=== PATIENT | female | born 1985 | race Two or more races ===

== ENCOUNTER → 2019-08-30 | Emergency (ER) | payer MEDICAID ==
[~2019-08-30] VITALS: Ht 162.6 cm; Wt 99.8 kg
[~2019-08-30] MED LIST: CARI-277; HYDR-4833; ONDANSETRON ODT 4 MG TAB PO ONE
[2019-08-30 15:50] VITALS: BP 143/78
== END | disposition home or self-care (01) ==
LOC: ER 14:26
DX: S16.1XXA Strain of muscle, fascia and tendon at neck level, initial encounter (principal); S00.12XA Contusion of left eyelid and periocular area, initial encounter; S00.11XA Contusion of right eyelid and periocular area, initial encounter; I10 Essential (primary) hypertension; Z88.0 Allergy status to penicillin; Z79.899 Other long term (current) drug therapy; Y04.2XXA Assault by strike against or bumped into by another person, initial encounter; Y93.89 Activity, other specified; Y92.89 Other specified places as the place of occurrence of the external cause; Y99.8 Other external cause status
CPT/HCPCS: 70450; 70486; 72125; 99285; Q0162

== ENCOUNTER 2020-01-02 18:13 | Emergency (ER) | payer MEDICAID ==
[~2020-01-02 18:13] MED LIST changes: -ONDANSETRON ODT 4 MG TAB PO ONE
== END 2020-01-02 18:23 | disposition left against medical advice (07) ==
LOC: EDBD 18:13 → ER 18:13
DX: R51 Headache (principal); Z53.21 Procedure and treatment not carried out due to patient leaving prior to being seen by health care provider

== ENCOUNTER 2020-07-25 22:39 | Inpatient (IN) | payer MEDICAID ==
[~2020-07-25] VITALS: Ht 160 cm; Wt 86.5 kg
[2020-07-26] MEDS ORDERED: IOHEXOL 300 MG/ML 100ML BOTTLE IJ ONE (00:36)
[2020-07-26 00:56] LABS: Basophils # (auto) 0 10 ^3/uL (0-0.2); Basophils % (auto) 0.2 % (0.0-2.0); Eosinophils # (auto) 0 10 ^3/uL (0-0.8); Eosinophils % (auto) 0.2 % (0.0-7.0); Hemoglobin 13.5 g/dL (12.2-16.2); Lymphocytes % (auto) 10.5 % (10.0-50.0); Mean Corpuscular Hemoglobin 28.3 pg (28.0-32.0); Mean Corpuscular Volume 85.7 fL (80.0-100.0); Monocytes # (auto) 0.8 10 ^3/uL (0-1.3); Monocytes % (auto) 4.2 % (0.0-12.0); Neutrophils # (auto) 16.1 10 ^3/uL (1.6-8.6); Neutrophils % (auto) 84.9 % (37.0-80.0); Platelet Count (auto) 255 10^3/uL (140-450); Red Blood Cells 4.78 10^6/uL (4.0-5.20); White Blood Cell 18.9 10^3/uL (4.4-10.8)
[2020-07-26 01:01] LABS: INR 1.02 (0.9-1.15)
[2020-07-26 01:03] LABS: Albumin 3.5 g/dL (3.4-5.0); BUN/Creatinine Ratio 7.1; Calcium 8.3 mg/dL (8.5-10.1); Magnesium 2.2 mg/dL (1.6-2.6)
[2020-07-26 01:06] LABS: Bilirubin, Total 0.3 mg/dL (0.2-1.0); Lactic Acid w/Reflex 3.3 mmol/L (0.4-2.0); Total Protein 7.9 g/dL (6.4-8.2)
[2020-07-26 01:07] LABS: Potassium 2.9 mmol/L (3.5-5.1)
[2020-07-26] MEDS ORDERED: VANCOMYCIN 1GM/250ML 250 ML IV ONE (01:30)
[2020-07-26] MEDS ORDERED: PIPERACILLIN-TAZOB 3.375GM 100 ML IV ONE (01:30)
[2020-07-26] MEDS ORDERED: POTASSIUM CHL 20MEQ/100ML 100 ML IV ONE (01:30)
[2020-07-26] MEDS ORDERED: SODIUM CHLORIDE 0.9% 1,000 ML IV ONE (01:30)
[2020-07-26] MEDS ORDERED: ACETAMINOPHEN 500 MG TAB PO ONE (01:30)
[2020-07-26] MEDS ORDERED: LACTATED RINGER'S 1,000 ML IV ONE (02:00)
[2020-07-26] MEDS ORDERED: VANCOMYCIN PER PHARMACY 0 MG IV SCH (03:15)
[2020-07-26] MEDS ORDERED: NITROGLYCERIN 0.4 MG SL TAB SL PRN (03:15)
[2020-07-26] MEDS ORDERED: MORPHINE SULF INJ 2 MG/ML SYRINGE 1ML IV PRN (03:15)
[2020-07-26] MEDS ORDERED: TEMAZEPAM 15 MG CAP PO PRN (03:15)
[2020-07-26] MEDS ORDERED: SODIUM CHLORIDE 0.9% 1,000 ML IV SCH (03:15)
[2020-07-26] MEDS ORDERED: ONDANSETRON HCL 4 MG/2 ML VIAL IV PRN (03:15)
[2020-07-26] MEDS ORDERED: ACETAMINOPHEN 325 MG TAB PO PRN (03:15)
[2020-07-26 04:15] LABS: Urine Bacteria FEW /hpf (None Seen); Urine Blood Negative /uL (Negative); Urine WBC 1 /hpf (0 - 5)
[2020-07-26 04:32] LABS: Amphetamine Screen, Urine POSITIVE (NEGATIVE); Barbiturate Scree,Urine NEGATIVE (NEGATIVE); Benzodiazephine Screen, Urine NEGATIVE (NEGATIVE); Cannabinoid Screen, Urine NEGATIVE (NEGATIVE); Cocaine Screen, Urine NEGATIVE (NEGATIVE); Opiate Scree,Urine NEGATIVE (NEGATIVE); Phencyclidine Screen, Urine NEGATIVE (NEGATIVE)
[2020-07-26 04:35] LABS: Urine Specific Gravity > 1.050 (1.001-1.035)
[2020-07-26 05:00] VITALS: BP 146/72
[2020-07-26] MEDS: HYDROcodone-ACET 5/325MG TAB PO PRN ×4 (05:59→22:06)
[2020-07-26 09:00] VITALS: BP 135/78
[2020-07-26] MEDS ORDERED: levoFLOXacin 500MG 100 ML IV SCH (10:00)
[2020-07-26] MEDS: FAMOTIDINE 20 MG TAB PO SCH ×2 (10:29→22:06)
[2020-07-26 12:41] VITALS: BP 147/79
[2020-07-26] MEDS ORDERED: MORPHINE SULF INJ 2 MG/ML SYRINGE 1ML IV ONE (12:45)
[2020-07-26] MEDS ORDERED: POTASSIUM CHL 20 Meq TABLET PO ONE (13:30)
[2020-07-26] MEDS ORDERED: POTASSIUM CHLORIDE 20 MEQ, LIDOCAINE 1% (LOCAL ANESTH.) 2 ML in SODIUM CHL 0.9% 100 ML IV ONE (13:30)
[2020-07-26] MEDS: VANCOMYCIN 1GM/250ML 250 ML IV SCH ×2 (13:57→22:06)
[2020-07-26 14:19] LABS: Basophils # (auto) 0 10 ^3/uL (0-0.2); Basophils % (auto) 0.3 % (0.0-2.0); Eosinophils # (auto) 0 10 ^3/uL (0-0.8); Eosinophils % (auto) 0.2 % (0.0-7.0); Hematocrit 34.8 % (36.0-46.0); Hemoglobin 11.7 g/dL (12.2-16.2); Lymphocytes # (auto) 1.1 10 ^3/uL (0.4-5.4); Lymphocytes % (auto) 9.2 % (10.0-50.0); Mean Corpuscular Hemoglobin 28.9 pg (28.0-32.0); Mean Corpuscular Hgb Conc. 33.6 g/dL (32.0-36.0); Mean Corpuscular Volume 85.9 fL (80.0-100.0); Monocytes # (auto) 0.8 10 ^3/uL (0-1.3); Monocytes % (auto) 6.5 % (0.0-12.0); Neutrophils # (auto) 10.3 10 ^3/uL (1.6-8.6); Neutrophils % (auto) 83.8 % (37.0-80.0); Platelet Count (auto) 183 10^3/uL (140-450); Red Blood Cells 4.05 10^6/uL (4.0-5.20); Red Cell Distribution Width 16.1 % (11.8-14.3); White Blood Cell 12.3 10^3/uL (4.4-10.8)
[2020-07-26] MEDS ORDERED: FOLI1TAB6 PO (14:49)
[2020-07-26] MEDS ORDERED: THIA100T10 PO (14:49)
[2020-07-26] MEDS ORDERED: MUPI2OIN2 TOP (14:49)
[2020-07-26 14:50] LABS: Calcium 8.2 mg/dL (8.5-10.1); Magnesium 2.1 mg/dL (1.6-2.6); Potassium 3.8 mmol/L (3.5-5.1)
[2020-07-26] MEDS ORDERED: GABA300C10 PO (14:52)
[2020-07-26 14:53] LABS: BUN/Creatinine Ratio 13.1
[2020-07-26] MEDS: GABAPENTIN 300 MG CAP PO SCH ×2 (16:08→22:06)
[2020-07-26 17:00] VITALS: BP 155/99
[2020-07-26] MEDS: POTASSIUM CHLORIDE 20 MEQ in SODIUM CHLORIDE 0.9% 1,000 ML IV SCH (18:32)
[2020-07-26] MEDS: PIPERACILLIN-TAZOB 3.375GM 100 ML IV SCH (18:32)
[2020-07-26 22:00] VITALS: BP 160/89
[2020-07-26] MEDS: MUPIROCIN 2% OINT 15gm or 22gm TOP SCH (22:07)
[2020-07-27] MEDS: PIPERACILLIN-TAZOB 3.375GM 100 ML IV SCH ×3 (00:03→11:00)
[2020-07-27] MEDS: POTASSIUM CHLORIDE 20 MEQ in SODIUM CHLORIDE 0.9% 1,000 ML IV SCH ×2 (00:51→10:22)
[2020-07-27] MEDS: HYDROcodone-ACET 5/325MG TAB PO PRN ×4 (02:22→22:22)
[2020-07-27 05:00] VITALS: BP 145/85
[2020-07-27 06:00] LABS: Basophils # (auto) 0 10 ^3/uL (0-0.2); Basophils % (auto) 0.3 % (0.0-2.0); Eosinophils # (auto) 0.2 10 ^3/uL (0-0.8); Eosinophils % (auto) 1.7 % (0.0-7.0); Hematocrit 33.6 % (36.0-46.0); Hemoglobin 11.5 g/dL (12.2-16.2); Lymphocytes # (auto) 2.8 10 ^3/uL (0.4-5.4); Lymphocytes % (auto) 30.1 % (10.0-50.0); Mean Corpuscular Hemoglobin 29.1 pg (28.0-32.0); Mean Corpuscular Hgb Conc. 34.2 g/dL (32.0-36.0); Monocytes # (auto) 0.7 10 ^3/uL (0-1.3); Monocytes % (auto) 7.9 % (0.0-12.0); Neutrophils # (auto) 5.5 10 ^3/uL (1.6-8.6); Platelet Count (auto) 206 10^3/uL (140-450); Red Blood Cells 3.96 10^6/uL (4.0-5.20); White Blood Cell 9.2 10^3/uL (4.4-10.8)
[2020-07-27] MEDS: GABAPENTIN 300 MG CAP PO SCH ×3 (06:17→22:21)
[2020-07-27] MEDS: VANCOMYCIN 1GM/250ML 250 ML IV SCH (06:26)
[2020-07-27 06:34] LABS: Albumin 2.6 g/dL (3.4-5.0); BUN/Creatinine Ratio 12.5; Bilirubin, Total 0.3 mg/dL (0.2-1.0); Calcium 8.5 mg/dL (8.5-10.1); Total Protein 6.3 g/dL (6.4-8.2)
[2020-07-27] MEDS: FOLIC ACID 1 MG TAB PO SCH (08:39)
[2020-07-27] MEDS: FAMOTIDINE 20 MG TAB PO SCH ×2 (08:39→22:21)
[2020-07-27] MEDS: THIAMINE HCL 100 MG TAB PO SCH (08:40)
[2020-07-27 08:49] VITALS: BP 162/85
[2020-07-27] MEDS: MUPIROCIN 2% OINT 15gm or 22gm TOP SCH ×2 (10:21→22:22)
[2020-07-27] MEDS ORDERED: FOLIC ACID 1 MG, MULTIPLE VITAMIN 10 ML, MAGNESIUM SULF SDV 50% 8 MEQ, THIAMINE INJ 100... INJ SCH ×5 (12:00)
[2020-07-27 13:00] VITALS: BP 140/80
[2020-07-27] MEDS ORDERED: VANCOMYCIN 1GM/250ML 250 ML IV SCH (15:00)
[2020-07-27] MEDS ORDERED: AMOX-277 PO (15:41)
[2020-07-27] MEDS: AMOXICILLIN/CLAVUL 875 MG TAB PO SCH ×2 (16:20→22:21)
[2020-07-27 16:53] VITALS: BP 131/89
[2020-07-27 16:56] VITALS: BP 131/89
[2020-07-27 22:16] VITALS: BP 157/97
[2020-07-28] MEDS: HYDROcodone-ACET 5/325MG TAB PO PRN ×3 (03:19→13:40)
[2020-07-28 05:00] VITALS: BP 157/88
[2020-07-28] MEDS: GABAPENTIN 300 MG CAP PO SCH ×2 (06:11→13:40)
[2020-07-28] MEDS: FOLIC ACID 1 MG TAB PO SCH (08:32)
[2020-07-28] MEDS: MUPIROCIN 2% OINT 15gm or 22gm TOP SCH (08:33)
[2020-07-28] MEDS: THIAMINE HCL 100 MG TAB PO SCH (08:33)
[2020-07-28] MEDS: AMOXICILLIN/CLAVUL 875 MG TAB PO SCH (08:33)
[2020-07-28] MEDS: FAMOTIDINE 20 MG TAB PO SCH (08:33)
[2020-07-28 09:00] VITALS: BP 142/90
[2020-07-28 11:34] LABS: Basophils # (auto) 0 10 ^3/uL (0-0.2); Basophils % (auto) 0.4 % (0.0-2.0); Eosinophils # (auto) 0.2 10 ^3/uL (0-0.8); Eosinophils % (auto) 2.1 % (0.0-7.0); Hematocrit 36.6 % (36.0-46.0); Hemoglobin 12.4 g/dL (12.2-16.2); Lymphocytes # (auto) 2.2 10 ^3/uL (0.4-5.4); Lymphocytes % (auto) 24.1 % (10.0-50.0); Mean Corpuscular Hemoglobin 28.7 pg (28.0-32.0); Mean Corpuscular Hgb Conc. 33.9 g/dL (32.0-36.0); Mean Corpuscular Volume 84.8 fL (80.0-100.0); Monocytes # (auto) 0.6 10 ^3/uL (0-1.3); Monocytes % (auto) 6.4 % (0.0-12.0); Neutrophils # (auto) 6.1 10 ^3/uL (1.6-8.6); Platelet Count (auto) 244 10^3/uL (140-450); Red Blood Cells 4.32 10^6/uL (4.0-5.20); Red Cell Distribution Width 15.6 % (11.8-14.3); White Blood Cell 9.2 10^3/uL (4.4-10.8)
[2020-07-28 12:20] VITALS: BP 142/90
[2020-07-28 13:00] VITALS: BP 144/75
[2020-07-28 17:00] VITALS: BP 141/79
[2020-07-28] MEDS ORDERED: HYDR-4902 PO (17:30)
== END 2020-07-28 18:23 | disposition home or self-care (01) | DRG 383 ==
LOC: EDBD 22:39 → EDUNIT# 22:39 → ER 22:42 → TELE 22:43 → TELE-WESTW 07-26 05:02
PROVIDERS: ADMIT Nurse Practitioner; ATTEND Internal Medicine
DX: L01.09 Other impetigo (principal); E66.01 Morbid (severe) obesity due to excess calories; Z20.822 Contact with and (suspected) exposure to COVID-19; L03.211 Cellulitis of face; E87.6 Hypokalemia; F10.129 Alcohol abuse with intoxication, unspecified; I10 Essential (primary) hypertension; E11.9 Type 2 diabetes mellitus without complications; Z68.32 Body mass index [BMI] 32.0-32.9, adult; F15.10 Other stimulant abuse, uncomplicated; F19.10 Other psychoactive substance abuse, uncomplicated; F17.200 Nicotine dependence, unspecified, uncomplicated; Z80.9 Family history of malignant neoplasm, unspecified; Z82.49 Family history of ischemic heart disease and other diseases of the circulatory system; Z83.3 Family history of diabetes mellitus; Z86.14 Personal history of Methicillin resistant Staphylococcus aureus infection; Z86.19 Personal history of other infectious and parasitic diseases; Z88.0 Allergy status to penicillin
CPT/HCPCS: 36415; 70460; 70486; 70491; 71045; 80048; 80053; 80202; 80307; 81001; 81025; 82550; 82565; 83516; 83605; 83735; 85025; 85610; 86225; 86235; 86703; 87040; 87077; 87081; 87186; 87205; 87426; 87880; 96361; 96365; 96367; G0378; J1956; J2001; J2543; J3480

== ENCOUNTER → 2021-06-19 | Emergency (ER) | payer SELFPAY ==
[~2021-06-19] VITALS: Ht 165.1 cm; Wt 81.6 kg
[~2021-06-19] MED LIST changes: +ALUM & MAG HYDROX-SIMETH LIQ(MAALOX) 30 ML ONE; +ALUM & MAG HYDROX-SIMETH LIQ(MAALOX) 30 ML PO ONE; +AMOX-277 PO; +FOLI1TAB6 PO; +GABA300C10 PO; -HYDR-4833; +HYDR-4902 PO; +MUPI2OIN2 TOP; +THIA100T10 PO
[2021-06-19 03:51] VITALS: BP 157/90
[2021-06-19 04:19] LABS: Hemoglobin 8.2 g/dL (12.2-16.2)
[2021-06-19 04:21] LABS: Basophils # (auto) 0 10 ^3/uL (0-0.2); Basophils % (auto) 0.3 % (0.0-2.0); Eosinophils # (auto) 0 10 ^3/uL (0-0.8); Eosinophils % (auto) 0.5 % (0.0-7.0); Hematocrit 24.5 % (36.0-46.0); Lymphocytes # (auto) 1.5 10 ^3/uL (0.4-5.4); Lymphocytes % (auto) 14.8 % (10.0-50.0); Mean Corpuscular Hemoglobin 30.2 pg (28.0-32.0); Mean Corpuscular Hgb Conc. 33.4 g/dL (32.0-36.0); Mean Corpuscular Volume 90.3 fL (80.0-100.0); Monocytes # (auto) 0.8 10 ^3/uL (0-1.3); Monocytes % (auto) 7.7 % (0.0-12.0); Neutrophils # (auto) 7.7 10 ^3/uL (1.6-8.6); Neutrophils % (auto) 76.7 % (37.0-80.0); Red Blood Cells 2.71 10^6/uL (4.0-5.20); Red Cell Distribution Width 15.3 % (11.8-14.3)
[2021-06-19 04:46] LABS: Urine Bacteria NONE SEEN /hpf (None Seen); Urine Blood Negative /uL (Negative); Urine Mucus FEW (None Seen); Urine Specific Gravity 1.006 (1.001-1.035); Urine WBC 1 /hpf (0 - 5)
[2021-06-19 04:51] LABS: Albumin 2.9 g/dL (3.4-5.0); BUN/Creatinine Ratio 14.1; Calcium 8.6 mg/dL (8.5-10.1); Potassium 3.9 mmol/L (3.5-5.1)
[2021-06-19 04:54] LABS: Bilirubin, Total 0.5 mg/dL (0.2-1.0); Total Protein 6.9 g/dL (6.4-8.2)
== END | disposition left against medical advice (07) ==
LOC: EDUNIT# 03:09 → EDBD 03:43 → ER 03:56
DX: R10.13 Epigastric pain (principal); Z53.21 Procedure and treatment not carried out due to patient leaving prior to being seen by health care provider
CPT/HCPCS: 36415; 80053; 81001; 82150; 83690; 85025; 93005

== ENCOUNTER 2021-11-06 22:02 | Emergency (ER) | payer SELFPAY ==
[~2021-11-06] VITALS: Ht 154.9 cm; Wt 77.1 kg
[~2021-11-06 22:02] MED LIST changes: -ALUM & MAG HYDROX-SIMETH LIQ(MAALOX) 30 ML ONE; -ALUM & MAG HYDROX-SIMETH LIQ(MAALOX) 30 ML PO ONE
[2021-11-07] MEDS ORDERED: KETOROLAC TROMETH 60MG/2ML VIAL IM ONE (01:15)
[2021-11-07 03:50] VITALS: BP 128/83
== END 2021-11-07 04:10 | disposition home or self-care (01) ==
LOC: ER 22:02
DX: S01.111A Laceration without foreign body of right eyelid and periocular area, initial encounter (principal); R51.9 Headache, unspecified; M54.2 Cervicalgia; M79.10 Myalgia, unspecified site; I10 Essential (primary) hypertension; Z88.0 Allergy status to penicillin; Y04.8XXA Assault by other bodily force, initial encounter; Y93.89 Activity, other specified; Y92.89 Other specified places as the place of occurrence of the external cause; Y99.8 Other external cause status
CPT/HCPCS: 12013; 70450; 70486; 72125; 96372; 99284; J1885

== ENCOUNTER 2021-11-17 11:12 | Emergency (ER) | payer MEDICAID, OTHER ==
[~2021-11-17] VITALS: Ht 167.6 cm; Wt 75.0 kg
[2021-11-17] MEDS ORDERED: ONDANSETRON HCL 4 MG/2 ML VIAL IV ONE (11:45)
[2021-11-17] MEDS ORDERED: SODIUM CHLORIDE 0.9% 1,000 ML IVB ONE (11:45)
[2021-11-17 13:07] LABS: Basophils # (auto) 0 10 ^3/uL (0-0.2); Basophils % (auto) 0.4 % (0.0-2.0); Eosinophils # (auto) 0.1 10 ^3/uL (0-0.8); Eosinophils % (auto) 0.9 % (0.0-7.0); Hematocrit 36.2 % (36.0-46.0); Hemoglobin 11.8 g/dL (12.2-16.2); Lymphocytes # (auto) 1.7 10 ^3/uL (0.4-5.4); Lymphocytes % (auto) 19.7 % (10.0-50.0); Mean Corpuscular Hemoglobin 28.8 pg (28.0-32.0); Mean Corpuscular Hgb Conc. 32.7 g/dL (32.0-36.0); Mean Corpuscular Volume 88.1 fL (80.0-100.0); Monocytes # (auto) 0.6 10 ^3/uL (0-1.3); Monocytes % (auto) 7.2 % (0.0-12.0); Neutrophils % (auto) 71.8 % (37.0-80.0); Nucleated Red Blood Cells % 0.1 %; Red Blood Cells 4.11 10^6/uL (4.0-5.20); Red Cell Distribution Width 15.9 % (11.8-14.3); White Blood Cell 8.4 10^3/uL (4.4-10.8)
[2021-11-17 13:17] LABS: Acetaminophen < 2.0 ug/mL (10-30); Salicylate < 1.7 mg/dL (2.8-20.0)
[2021-11-17 13:22] LABS: Chloride 105 mmol/L (98-107); Potassium 3.8 mmol/L (3.5-5.1); Sodium 138 mmol/L (136-145)
[2021-11-17 13:29] LABS: Alanine Aminotransferase 39 U/L (13-56); Albumin 3.1 g/dL (3.4-5.0); Alkaline Phosphatase 123 U/L (45-117); Anion Gap 6 (5-15); Aspartate Aminotransferase 40 U/L (15-37); BUN/Creatinine Ratio 24.3; Bilirubin, Total 0.5 mg/dL (0.2-1.0); Blood Alcohol < 3.0 mg/dL (0-5); Blood Urea Nitrogen 17 mg/dL (7-18); Calcium 8.3 mg/dL (8.5-10.1); Carbon Dioxide 27 mmol/L (21-32); GFR African American 122 mL/min; GFR Non-African American 101 mL/min; Glucose 94 mg/dL (74-106); Total Protein 6.9 g/dL (6.4-8.2)
[2021-11-17 14:14] LABS: Alcohol, Urine < 3.0 mg/dL (0-10); Amphetamine Screen, Urine POSITIVE (NEGATIVE); Barbiturate Scree,Urine NEGATIVE (NEGATIVE); Benzodiazephine Screen, Urine NEGATIVE (NEGATIVE); Cannabinoid Screen, Urine NEGATIVE (NEGATIVE); Cocaine Screen, Urine NEGATIVE (NEGATIVE)
[2021-11-17 14:20] LABS: Urine Bacteria NONE SEEN /hpf (None Seen); Urine Blood Negative /uL (Negative); Urine Hyaline Cast FEW /lpf (0 - 2); Urine Mucus FEW (None Seen); Urine WBC 23 /hpf (0 - 5)
[2021-11-17 14:21] LABS: Opiate Scree,Urine POSITIVE (NEGATIVE); Phencyclidine Screen, Urine NEGATIVE (NEGATIVE)
[2021-11-18 10:35] VITALS: BP 123/78
== END 2021-11-18 12:25 | disposition left against medical advice (07) ==
LOC: ER 11:12 → EDBD 11:12 → ER 11-18 12:25
DX: T40.412A Poisoning by fentanyl or fentanyl analogs, intentional self-harm, initial encounter (principal); R45.851 Suicidal ideations; F17.210 Nicotine dependence, cigarettes, uncomplicated; F12.10 Cannabis abuse, uncomplicated; F15.10 Other stimulant abuse, uncomplicated; F11.10 Opioid abuse, uncomplicated; Y92.89 Other specified places as the place of occurrence of the external cause
CPT/HCPCS: 36415; 80053; 80307; 80320; 80329; 81001; 81025; 85025; 87426; 96361; 96374; 99285; J2405; J7030